=== PATIENT | female | born 1950 | race Caucasian/White ===

== ENCOUNTER 2018-09-03 11:51 | Outpatient (CLI) | payer MEDICARE, BC ==
--- NOTE | 2018-09-05 11:09 | MRI Report ---
Reason: ROTATOR CUFF SYNDROME, RIGHT Procedure Date: 09/03/2018 Accession Number: [id number] / [id number] Procedure: MRI - Shoulder RT W/O CPT Code: FULL RESULT: EXAM: RIGHT SHOULDER MRI WITHOUT CONTRAST EXAM DATE: 09/03/2018 01:15 PM. CLINICAL HISTORY: Right rotator cuff syndrome. Right shoulder pain and decreased range of motion. COMPARISON: None. TECHNIQUE: Multiplanar, multisequence T1-weighted and fluid-sensitive sequences of the shoulder without contrast. Other: None. FINDINGS: Acromioclavicular Region: The acromion is type II. Moderate, acromioclavicular osteoarthropathy is evidenced by bony hypertrophy and capsular hypertrophy. The coracoacromial and coracoclavicular ligaments are intact. A moderate amount of fluid is in the subacromial/subdeltoid bursa. Glenohumeral Region: No subluxation. No effusion or loose bodies. There articular cartilage demonstrates areas of moderate thinning at the superior bony humeral joint. There is mild osteophyte formation in the joint space. The glenohumeral ligaments and joint capsule are unremarkable. Bone Marrow: No fracture, marrow edema or bone lesions. Labrum: The labrum is unremarkable on this nonarthrographic study. Musculature/Rotator Cuff: The subscapularis tendon is unremarkable. The supraspinatus tendon has a partial-thickness, joint sided tear of the anterior 10 mm the tendon. The tear is 12 mm in length and up to 40% in thickness. The infraspinatus tendon has some mild increased T2 signal and joint-sided irregularity. The teres minor tendon is intact. No edema or fatty atrophy. Biceps Tendon: The long head of the biceps tendon and biceps anderson are intact. Other: The subcutaneous tissues are unremarkable. IMPRESSION: 1. Moderate acromioclavicular osteoarthropathy. 2. Moderate subacromial/subdeltoid bursitis. 3. Mild bony humeral osteophyte. 4. Partial tear of the supraspinatus tendon. 5. Mild infraspinatus tendinosis. RADIA
== END 2018-09-03 11:52 | disposition home or self-care (01) ==
LOC: DI 11:51
PROVIDERS: ATTEND Orthopaedic Surgery Sports Medicine
DX: M75.101 Unspecified rotator cuff tear or rupture of right shoulder, not specified as traumatic (principal); M19.011 Primary osteoarthritis, right shoulder; M75.51 Bursitis of right shoulder; M75.81 Other shoulder lesions, right shoulder; M25.711 Osteophyte, right shoulder

== ENCOUNTER 2023-11-22 15:02 | Outpatient (CLI) | payer MEDICARE, BC ==
--- NOTE | 2023-11-22 18:10 | DEXA Report ---
PROCEDURE: Dexa Spine and/or Hip INDICATIONS: POSTMENOPAUSAL TECHNIQUE: Dual energy x-ray absorptiometry (DXA) was performed on a [id number] System. Regions measur ed are the AP Spine, femoral neck, and if needed forearm. COMPARISON: None FINDINGS: Lumbar Spine: Bone Mineral Density: 1.07 g/cm/cm,T score: -0.9. Left Femoral Neck: Bone Mineral Density: 0.798 g/cm/cm, T score: -1.7. Left Hip: Bone Mineral Density: 0.839 g/cm/cm,T score: -1.3. FRAX risk factors: None given. 10 year risk of major osteoporotic fracture: 11.5% major osteoporotic fracture = hip, clinical vertebral, proximal humerus, distal forearm 10 year risk of hip fracture: 2.5% (T score greater or equal to -1.0: NORMAL) (T score from -1.1 to -2.4: OSTEOPENIA) (T score less than or equal to -2.5 to: OSTEOPOROSIS) Impression: By WHO criteria, this patient has low bone density (osteopenia). Patients with diagnosis of osteoporosis or osteopenia should have regular bone mineral density assess ment. For those eligible for Medicare, routine testing is allowed once every 2 years. Testing frequ ency can be increased for patients who have rapidly progressing disease or for those who are receivin g medical therapy to restore bone mass. Reviewed by: Frank Campos MD on 11/22/2023 6:08 PM PDT Approved by: Frank Campos MD on 11/22/2023 6:08 PM PDT Station ID: [id number]
== END 2023-11-22 15:03 | disposition home or self-care (01) ==
LOC: DI 15:02
PROVIDERS: ATTEND Registered Nurse
DX: M85.89 Other specified disorders of bone density and structure, multiple sites (principal); Z78.0 Asymptomatic menopausal state